=== PATIENT | male | born 1960 | race Caucasian/White ===

== ENCOUNTER 2021-09-15 10:06 | Outpatient (CLI) | payer BC | END 2021-09-15 10:07 | disposition home or self-care (01) | LOC: DTY/OP 10:06 | PROVIDERS: ATTEND Family Medicine | DX: I25.10 Atherosclerotic heart disease of native coronary artery without angina pectoris (principal) | CPT/HCPCS: 97802 ==

== ENCOUNTER 2021-12-05 16:56 | Outpatient (CLI) | payer BC | END 2021-12-05 16:57 | disposition home or self-care (01) | LOC: SCSRAD 16:56 | PROVIDERS: ATTEND Family Medicine | DX: M25.561 Pain in right knee (principal) ==